=== PATIENT | female | born 1960 | race Caucasian/White ===

== ENCOUNTER 2016-10-25 11:34 | Emergency (ER) | payer OTHER ==
[~2016-10-25] VITALS: Ht 170.2 cm; Wt 77.0 kg
[2016-10-25 11:39] VITALS: BP 163/98; PULSE 90; RESP 16; TEMP 98; O2SAT 99
[2016-10-25] MEDS ORDERED: TRAZ100T4 PO (12:05)
[2016-10-25] MEDS ORDERED: NUCY50TA9 PO (12:05)
[2016-10-25] MEDS ORDERED: ESTR2TAB PO (12:05)
[2016-10-25] MEDS ORDERED: GABA600T PO (12:05)
[2016-10-25] MEDS ORDERED: GLAT1INJ SQ (12:05)
[2016-10-25] MEDS ORDERED: ROSU10 PO (12:05)
--- NOTE | 2016-10-25 12:12 | PD ---
HPI Chief Complaint: Abdominal Pain Time Seen by Provider: 12:01 Travel History International Travel<30 days: No Contact w/Intl Traveler<30days: No Traveled to known affect area: No History of Present Illness HPI This 56-year-old female is complaining of left lower quadrant pain. She's been having the pain for several days. She has a history of diverticulitis and she thinks she is having a flare of diverticulitis. She has had some loose stools. She started herself on Augmentin 2 days ago. The pain is aggravated by eating. She is not aware of fever. Has not been vomiting. She has a history of cholecystectomy and endometriosis. She has had a hysterectomy. She has a history of multiple sclerosis and fibromyalgia PFSH Past Medical History Hx Anticoagulant Therapy: No Cardiovascular Problems: Yes (CHOL) Diabetes: No Diminished Hearing: No Fibromyalgia: Yes Gastrointestinal Disorders: Yes (Diverticulitis) Neurologic: Yes (Multiple Sclerosis) Tetanus Vaccination: < 5 Years Influenza Vaccination: Yes ?: Not Past Surgical History Section: Yes Cholecystectomy: Yes Gynecologic Surgery: Yes (Laproscopic x5 for endometreosis) Hysterectomy: Yes (x3) Oral Surgery: Yes (Root canal x3) Tonsillectomy: Yes Other Surgery: Yes (colonoscopy x2, nose reconstruction, Breast reduction x2) Social History Alcohol Use: No Tobacco Use: No Substance Use: No Allergies-Medications (Allergen,Severity, Reaction): Coded Allergies: Adhesives (Verified Allergy, Severe, 10/25/16) Clindamycin (Verified Allergy, Severe, 10/25/16) Reported Meds & Prescriptions Reported Meds & Active Scripts Active Reported Nucynta (Tapentadol) 50 Mg Tab 50 Mg PO Q4H PRN Copaxone Inj (Glatiramer Inj) 40 Mg/Ml Syr 40 Mg SQ 3XWEEK PRN Use 3 times/week at least 48 hrs apart Trazodone (Trazodone HCl) 100 Mg Tab 100 Mg PO HS Estradiol 2 Mg Tab 2 Mg PO DAILY Gabapentin 600 Mg Tab 600 Mg PO TID Crestor (Rosuvastatin Calcium) 10 Mg Tab 10 Mg PO DAILY Review of Systems General / Constitutional: No: Fever, Chills Eyes: No: Diploplia, Blurred Vision HENT: No: Headaches, Vertigo Cardiovascular: No: Chest Pain or Discomfort, Palpitations Respiratory: No: Cough, Shortness of Breath Gastrointestinal: Positive: Diarrhea, Abdominal Pain, No: Vomiting Genitourinary: No: Urgency, Frequency Skin: No Rash Physical Exam Narrative GENERAL: Well-developed female SKIN: Focused skin assessment warm/dry. HEAD: Atraumatic. Normocephalic. EYES: Pupils equal and round. No scleral icterus. No injection or drainage. ENT: No nasal bleeding or discharge. Mucous membranes pink and moist. NECK: Trachea midline. No JVD. CARDIOVASCULAR: Regular rate and rhythm. No murmur appreciated. RESPIRATORY: No accessory muscle use. Clear to auscultation. Breath sounds equal bilaterally. GASTROINTESTINAL: Abdomen soft, there is some left lower quadrant tenderness without rigidity, nondistended. Hepatic and splenic margins not palpable. MUSCULOSKELETAL: No obvious deformities. No clubbing. No cyanosis. No edema. NEUROLOGICAL: Awake and alert. No obvious cranial nerve deficits. Motor grossly within normal limits. Normal speech. PSYCHIATRIC: Appropriate mood and affect; insight and judgment normal. Data Data Last Documented VS Vital Signs Date Time Temp Pulse Resp B/P Pulse Ox O2 Delivery O2 Flow Rate FiO2 10/25/16 11:39 98.0 90 16 163/98 99 Orders Complete Blood Count With Diff (10/25/16 12:08) Comprehensive Metabolic Panel (10/25/16 12:08) Urinalysis - C+S If Indicated (10/25/16 12:08) Sodium Chlor 0.9% 1000 Ml Inj (Ns 1000 M (10/25/16 12:15) Ondansetron Inj (Zofran Inj) (10/25/16 12:15) Hydromorphone Pf Inj (Dilaudid Pf Inj) (10/25/16 12:15) Ampicillin-Sulbactam Inj (Unasyn Inj) (10/25/16 12:15) Labs Laboratory Tests Test 10/25/16 12:16 White Blood Count 8.2 TH/MM3 Red Blood Count 5.09 MIL/MM3 Hemoglobin 15.0 GM/DL Hematocrit 45.8 % Mean Corpuscular Volume 89.8 FL Mean Corpuscular Hemoglobin 29.4 PG Mean Corpuscular Hemoglobin 32.7 % Concent Red Cell Distribution Width 12.9 % Platelet Count 364 TH/MM3 Mean Platelet Volume 6.9 FL Neutrophils (%) (Auto) 70.2 % Lymphocytes (%) (Auto) 22.9 % Monocytes (%) (Auto) 4.9 % Eosinophils (%) (Auto) 0.5 % Basophils (%) (Auto) 1.5 % Neutrophils # (Auto) 5.8 TH/MM3 Lymphocytes # (Auto) 1.9 TH/MM3 Monocytes # (Auto) 0.4 TH/MM3 Eosinophils # (Auto) 0.0 TH/MM3 Basophils # (Auto) 0.1 TH/MM3 CBC Comment DIFF FINAL Differential Comment Urine Collection Type CLEAN CATCH Urine Color STRAW Urine Turbidity CLEAR Urine pH 5.5 Urine Specific [place] 1.003 Urine Protein NEG mg/dL Urine Glucose (UA) NEG mg/dL Urine Ketones NEG mg/dL Urine Occult Blood NEG Urine Nitrite NEG Urine Bilirubin NEG Urine Leukocyte Esterase NEG Urine RBC 0-3 /hpf Urine WBC 0-2 /hpf Urine Squamous Epithelial 6-8 /hpf Cells Microscopic Urinalysis Comment CULT NOT INDICATED Urine Collection Time 12:16 Sodium Level 141 MEQ/L Potassium Level 3.8 MEQ/L Chloride Level 104 MEQ/L Carbon Dioxide Level 28.6 MEQ/L Anion Gap 8 MEQ/L Blood Urea Nitrogen 7 MG/DL Creatinine 0.79 MG/DL Estimat Glomerular Filtration 76 ML/MIN Rate Random Glucose 96 MG/DL Calcium Level 9.2 MG/DL Total Bilirubin 0.6 MG/DL Aspartate Amino Transf 19 U/L (AST/SGOT) Alanine Aminotransferase 23 U/L (ALT/SGPT) Alkaline Phosphatase 69 U/L Total Protein 9.1 GM/DL Albumin 4.7 GM/DL MDM Medical Decision Making Medical Screen Exam Complete: Yes Emergency Medical Condition: Yes Medical Record Reviewed: Yes Differential Diagnosis Differential includes UTI, diverticulitis, nonspecific abdominal pain Narrative Course White count is normal. Presentation is consistent with diverticulitis. I don' t think a CT is warranted in view of the normal white count. I will prescribe Augmentin and Percocet for pain Diagnosis Primary Impression: Acute diverticulitis Scripts Oxycodone-Acetaminophen (Percocet)7.5-325 mg Tab1 Tab PO Q4H PRN (PAIN) #30 TAB Ref 0 Prov:Nik Vu MD 10/25/16 Amoxicillin-Clavulanate (Augmentin)875-125 Mg Tab1 Tab PO BID #20 TAB Ref 0 Prov:Nik Vu MD 10/25/16 Disposition: DISCHARGE HOME Condition: Stable Nik Vu MD Oct 25, 2016 12:12
[2016-10-25] MEDS ORDERED: SODIUM CHLOR 0.9% 1000 ML INJ 1,000 ML IV ONE (12:15)
[2016-10-25] MEDS ORDERED: HYDROmorphone HCL PF 1 MG/ML VIAL IV PUSH ONE (12:15)
[2016-10-25] MEDS ORDERED: ONDANSETRON HCL 4 MG/2 ML VIAL IV PUSH ONE (12:15)
[2016-10-25] MEDS ORDERED: AMPICILLIN-SULBACTAM INJ 3 GM in SODIUM CHLORIDE 0.9% INJ 100 ML IV ONE (12:15)
[2016-10-25 12:32] LABS: BLOOD, URINE NEG (NEG); GLUCOSE,URINE NEG (NEG); KETONE, URINE NEG (NEG); NITRITE,URINE NEG (NEG); PH, URINE 5.5 (5.0-8.5)
[2016-10-25 12:33] LABS: AUTOMATED NEUTROPHIL # 5.8 TH/MM3 (1.8-7.7); BASOPHIL # 0.1 TH/MM3 (0-0.2); BASOPHIL % 1.5 % (0.0-2.0); EOSINOPHIL % 0.5 % (0.0-4.0); HEMATOCRIT 45.8 % (35.0-46.0); HEMO FLAGS DIFF FINAL; LYMPH % 22.9 % (9.0-44.0); LYMPHOCYTE # 1.9 TH/MM3 (1.0-4.8); MEAN CELL VOLUME 89.8 FL (80.0-100.0); MEAN CORPUSCULAR HEMOGLOBIN 29.4 PG (27.0-34.0); MEAN CORPUSCULAR HGB CONC 32.7 % (32.0-36.0); MONO % 4.9 % (0.0-8.0); NEUT % 70.2 % (16.0-70.0); PLATELET COUNT 364 TH/MM3 (150-450); RED BLOOD COUNT 5.09 MIL/MM3 (4.00-5.30); RED CELL DISTRIBUTION WIDTH 12.9 % (11.6-17.2); WHITE BLOOD COUNT 8.2 TH/MM3 (4.0-11.0)
[2016-10-25 12:38] LABS: COMMENT (UR) CULT NOT INDICATED; CULTURE IF INDICATED CULT NOT INDICATED; METHOD OF COLLECTION CLEAN CATCH; RBC, URINE 0-3 /hpf (0-3); URINE COLOR STRAW (YELLW/STRAW); WBC, URINE 0-2 /hpf (0-5)
[2016-10-25 12:41] LABS: CHLORIDE 104 MEQ/L (98-107); POTASSIUM 3.8 MEQ/L (3.5-5.1); SODIUM (NA) 141 MEQ/L (136-145)
[2016-10-25 12:45] LABS: ANION GAP 8 MEQ/L (5-15); BICARBONATE 28.6 MEQ/L (21.0-32.0); BLOOD UREA NITROGEN 7 MG/DL (7-18)
[2016-10-25 12:48] LABS: ALT (GPT) 23 U/L (10-53); AST (GOT) 19 U/L (15-37); GLOMERULAR FILTRATION RATE 76 ML/MIN (>89)
[2016-10-25 12:49] LABS: TOTAL BILIRUBIN ADULT 0.6 MG/DL (0.2-1.0)
[2016-10-25 12:51] LABS: ALKALINE PHOSPHATASE 69 U/L (45-117)
[2016-10-25] MEDS ORDERED: AUGM875T3 PO (13:10)
[2016-10-25] MEDS ORDERED: PERC7.5T13 PO (13:10)
[2016-10-25] MEDS ORDERED: DICY20TA10 PO (13:12)
== END 2016-10-25 13:27 | disposition home or self-care (01) ==
LOC: PHED 11:34
DX: K57.92 Diverticulitis of intestine, part unspecified, without perforation or abscess without bleeding (principal); G35 Multiple sclerosis; M79.7 Fibromyalgia
CPT/HCPCS: 80053; 81001; 85025; 96365; 96375; 99284; J0295; J1170; J2405; J7030